=== PATIENT | male | born 1970 | race Caucasian/White ===

== ENCOUNTER 2022-11-23 01:25 | Emergency (ER) | payer BC ==
[~2022-11-23] VITALS: Ht 172.7 cm; Wt 90.9 kg
[2022-11-23] MEDS ORDERED: NEURONTIN300 MG/CAP PO (02:46)
[2022-11-23 03:02] VITALS: BP 117/75; PULSE 64
== END 2022-11-23 03:02 | disposition home or self-care (01) ==
LOC: COL.ER 01:25
DX: M54.50 Low back pain, unspecified (principal); X50.1XXA Overexertion from prolonged static or awkward postures, initial encounter; Y92.322 Soccer field as the place of occurrence of the external cause; Y93.66 Activity, soccer
CPT/HCPCS: J1885